=== PATIENT | male | born 1960 | race Caucasian/White ===

== ENCOUNTER → 2022-07-24 14:39 | Outpatient (CLI) | payer BC, SELFPAY ==
--- NOTE | ~2022-07-24 | US_ITS ---
EXAMINATION: US soft tissue head and neck DATE: 07/24/2022 15:04 INDICATION: Right neck lump. TECHNIQUE: Multiple grayscale and Doppler ultrasound images of the neck were obtained. COMPARISON: None FINDINGS: There is a normal lymph node in the patient's area of concern posterior to the right ear. IMPRESSION: 1. Normal lymph node in the patient's area of concern posterior to the right ear. Reviewed, dictated and finalized at location A. [employer] IMPRESSION: 1. Normal lymph node in the patient's area of concern posterior to the right micah puentes
== END ==
PROVIDERS: PCP Family Medicine; Visit Provider Nurse Practitioner Family
DX: R22.1 Localized swelling, mass and lump, neck (principal)
CPT/HCPCS: 76536